=== PATIENT | male | born 1980 | race Caucasian/White ===

== ENCOUNTER 2019-11-25 18:36 | Emergency (ER) | payer SELFPAY ==
[~2019-11-25] VITALS: Ht 188 cm; Wt 102.1 kg
--- NOTE | 2019-11-25 19:11 | NUR ---
Endorsed/LUIZA w/CARLIN garcia MD evaluation
[2019-11-25] MEDS ORDERED: HYDROCODONE/APAP 10/325MG 1 EA TABLET ONE (19:28)
[2019-11-25] MEDS ORDERED: TDAP [DIPH/PERTUSSIS/TET] 0.5 ML VIAL IM ONE ×2 (19:28→19:30)
[2019-11-25] MEDS ORDERED: ONDANSETRON 4 MG TAB.RAPDIS ONE (19:28)
[2019-11-25] MEDS ORDERED: ONDANSETRON 4 MG TAB.RAPDIS SL ONE (19:30)
[2019-11-25] MEDS ORDERED: HYDROCODONE/APAP 10/325MG 1 EA TABLET PO ONE (19:30)
--- NOTE | 2019-11-25 19:35 | NUR ---
REPORT RECEIVED FROM CARLIN LEES FOR MANNY
[2019-11-25] MEDS ORDERED: KETOROLAC TROMETHAMINE INJ 30 MG/ML VIAL ONE (21:45)
--- NOTE | 2019-11-25 21:55 | NUR ---
Patient discharged to home in stable condition. Written and verbal after care instructions given. Patient verbalizes understanding of instruction.PT ambulatory with a steady gait
[2019-11-25 21:56] VITALS: BP 131/67
[2019-11-25] MEDS ORDERED: KETOROLAC TROMETHAMINE INJ 60 MG/2 ML VIAL IM ONE (22:00)
== END 2019-11-25 21:56 | disposition home or self-care (01) ==
LOC: ER 18:38
DX: S92.001A Unspecified fracture of right calcaneus, initial encounter for closed fracture (principal); S92.002A Unspecified fracture of left calcaneus, initial encounter for closed fracture; S61.431A Puncture wound without foreign body of right hand, initial encounter; W18.39XA Other fall on same level, initial encounter; Y93.89 Activity, other specified; Y92.89 Other specified places as the place of occurrence of the external cause; Y99.8 Other external cause status
CPT/HCPCS: 29515; 73610; 73630 ×2; 90471; 90715; 96372; 99284; J1885; Q0162

== ENCOUNTER 2021-10-21 19:13 | Emergency (ER) | payer MEDICAID ==
[~2021-10-21] VITALS: Ht 188 cm; Wt 104.3 kg
--- NOTE | 2021-10-21 20:17 | NUR ---
TO ER BED6. BIBSELF C/O FEVER "103.9" AT HOME, RELIEVED BY TYLENOL. NO FEVER NOTED DURING TRIAGE: 98.9. PT DENIES CHEST PAIN AND SOB. CONNECTED TO MONITOR. AWAITING MD FERNANDEZ
--- NOTE | 2021-10-21 20:18 | NUR ---
URINE SAMPLE COLLECTED AND SENT TO LAB
--- NOTE | 2021-10-21 20:49 | NUR ---
IV LINE ESTABLISHED. RAC 20 BLOOD COLLECTED AND SENT TO LAB
[2021-10-21] MEDS ORDERED: IV NS 0.9% 1,000 ML BAG IV ONE (21:00)
--- NOTE | 2021-10-21 21:13 | NUR ---
COVID ANTIGEN AND RAPID STREP SWAB COLLECTED
[2021-10-21 21:55] LABS: BASOPHILS % (AUTO) 0.2 % (0.0-2.0); EOSINOPHILS % (AUTO) 0.2 % (0.0-6.0); HEMATOCRIT 42 % (39-51); HEMOGLOBIN 13.9 g/dL (13.5-17.5); LYMPHOCYTES # (AUTO) 1.1 K/uL (0.8-4.8); MEAN CORPUSCULAR HGB CONC 33 g/dl (31.0-36.0); MEAN CORPUSCULAR VOLUME 86 fL (80-96); MONOCYTES # (AUTO) 1.8 K/uL (0.1-1.30); MONOCYTES % (AUTO) 13.4 % (2.0-12.0); NEUTROPHILS # (AUTO) 10.7 K/uL (1.8-8.9); NEUTROPHILS % (AUTO) 78.2 % (43.0-81.0); PLATELET COUNT (AUTO) 204 K/uL (150-450); RED BLOOD CELL COUNT(AUTO) 4.84 MIL/uL (4.5-6.0); WHITE BLOOD COUNT (AUTO) 13.7 K/uL (4.3-11.0)
[2021-10-21 22:15] LABS: CALCIUM, SERUM 9.3 mg/dL (8.5-10.1); CREATININE 1.3 mg/dL (0.6-1.3); POTASSIUM 4.4 mmol/L (3.5-5.1)
--- NOTE | 2021-10-21 23:20 | NUR ---
IV removed. Catheter intact and site benign. Pressure and 4x4 applied to site. No bleeding noted.
--- NOTE | 2021-10-21 23:21 | NUR ---
Patient discharged to home in stable condition. Written and verbal after care instructions given. Patient verbalizes understanding of instruction.
[2021-10-21 23:23] VITALS: BP 134/73
[2021-10-21 23:23] LABS: BILIRUBIN,URINE NEGATIVE (NEGATIVE); COLOR,URINE DARK YELLOW (YELLOW); LEUKOCYTE ESTERASE ,URINE NEGATIVE (NEGATIVE); NITRITE, URINE NEGATIVE (NEGATIVE); PROTEIN,URINE NEGATIVE (NEGATIVE); UGLUCOSE NEGATIVE (NEGATIVE); UROBILINOGEN,URINE 0.2 EU/dL (0.2)
[2021-10-22 06:30] LABS: BACTERIA,URINE Rare /HPF (None Seen); SQUAMOUS EPITHELIAL CELL,UR Few /HPF (None Seen); WBC,URINE NONE SEEN /HPF (0-3)
== END 2021-10-21 23:24 | disposition home or self-care (01) ==
LOC: ER 19:20
DX: R50.9 Fever, unspecified (principal); R10.9 Unspecified abdominal pain; Z20.822 Contact with and (suspected) exposure to COVID-19; E87.1 Hypo-osmolality and hyponatremia; R03.0 Elevated blood-pressure reading, without diagnosis of hypertension
CPT/HCPCS: 36415; 74176; 80048; 81001; 83690; 85025; 87070; 87426; 87880; 96360; 99284; C9803; J7030; 86403-TC

== ENCOUNTER 2022-04-05 15:49 | Emergency (ER) | payer MEDICAID ==
[~2022-04-05] VITALS: Ht 188 cm; Wt 102.1 kg
[2022-04-05 16:32] VITALS: BP 131/84
--- NOTE | 2022-04-05 17:10 | NUR ---
LEFT IN STABLE CONDITION WITHOUT BEING SEEN BY DR CLIFTON
== END 2022-04-05 17:34 | disposition left against medical advice (07) ==
LOC: ER 15:54
DX: Z53.21 Procedure and treatment not carried out due to patient leaving prior to being seen by health care provider (principal); R53.1 Weakness